=== PATIENT | male | born 1985 | race Caucasian/White ===

== ENCOUNTER 2019-12-21 01:19 | Inpatient (IN) | payer OTHER, SELFPAY ==
[~2019-12-21] VITALS: Ht 188 cm; Wt 113.4 kg
[2019-12-21 01:19] VITALS: BP_SYST 122
[2019-12-21] MEDS ORDERED: PHENYTOIN SODIUM INJ 1,000 MG in NS 100 ML IV ONE (01:45)
[2019-12-21] MEDS ORDERED: levETIRAcetam 1,000 MG IV BAG 100 ML IV ONE (02:00)
[2019-12-21] MEDS ORDERED: PHENYTOIN SODIUM 250 MG/5 ML INJ. VIAL IV ONE (02:08)
[2019-12-21 02:15] LABS: BASOPHILS # (AUTO) 0.1 K/uL (0.0-0.2); BASOPHILS % (AUTO) 1.4 % (0.0-2.0); EOSINOPHILS # (AUTO) 0.1 K/uL (0.0-0.4); EOSINOPHILS % (AUTO) 1.7 % (0.0-4.0); HEMATOCRIT 42.4 % (36-54); HEMOGLOBIN 14.9 g/dL (14.0-18.0); LYMPHOCYTES # (AUTO) 2.1 K/uL (1.0-5.5); LYMPHOCYTES % (AUTO) 37.9 % (20.5-51.5); MEAN CORPUSCULAR HEMOGLOBIN 31 pg (27-31); MEAN CORPUSCULAR HGB CONC 35 % (32-36); MEAN CORPUSCULAR VOLUME 87 fL (79.0-98.0); MONOCYTES # (AUTO) 0.4 K/uL (0.0-1.0); NEUTROPHILS # (AUTO) 2.8 K/uL (1.8-7.7); PLATELET COUNT (AUTO) 261 K/uL (130-430); RED BLOOD CELL COUNT(AUTO) 4.88 MIL/uL (4.2-6.2); RED CELL DISTRIBUTION WIDTH 13.2 % (9.0-15.0); WHITE BLOOD COUNT (AUTO) 5.6 K/uL (4.8-10.8)
[2019-12-21 02:24] LABS: BARBITURATE, URINE NEGATIVE (NEG <=200); BENZODIAZEPINE, URINE POSITIVE (NEG <=150); CANNABINOID, URINE NEGATIVE (NEG <=50); COCAINE, URINE NEGATIVE (NEG <=150); METHAMPHETAMINES SCREEN,URINE NEGATIVE (NEG <=500); OPIATE, URINE NEGATIVE (NEG <=100); PHENCYCLIDINE SCREEN,URINE NEGATIVE (NEG <=25); UR TRICYCLIC ANTIDEPRESSANTS NEGATIVE (NEG <=300); URINE AMPHETAMINE NEGATIVE (NEG <=500); URINE METHADONE NEGATIVE (NEG <=200); URINE OXYCODONE SCREEN NEGATIVE (NEG <=100); URINE PROPOXYPHENE SCREEN NEGATIVE (NEG <=300)
[2019-12-21 02:48] LABS: CALCIUM 8.2 mg/dL (8.4-11.0); CREATININE 0.72 mg/dL (0.55-1.30); POTASSIUM 3.8 mmol/L (3.5-5.1)
[2019-12-21 02:54] LABS: ALBUMIN 3.5 g/dL (3.4-4.8); TOTAL BILIRUBIN 0.4 mg/dL (0.0-1.0)
[2019-12-21 03:12] LABS: PHENYTOIN (DILANTIN) 1.1 ug/mL (10.0-20.0)
[2019-12-21 03:33] LABS: FREE T4 (FREE THYROXINE) 1.6 ng/dl (0.8-1.5); THYROID STIMULATING HORMONE 5.48 uIu/mL (0.36-3.74)
[2019-12-21] MEDS ORDERED: LORazepam 2 MG/ML VIAL IVP ONE (04:00)
[2019-12-21] MEDS ORDERED: LEVE500T9 PO (04:12)
[2019-12-21] MEDS ORDERED: LORazepam 2 MG/ML VIAL ONE (04:16)
[2019-12-21] MEDS ORDERED: ACETAMINOPHEN 500 MG TABLET PO ONE (04:30)
[2019-12-21 05:08] VITALS: BP_SYST 137
[2019-12-21] MEDS ORDERED: levETIRAcetam 1,000 MG in NS 100 ML IV STA (05:22)
[2019-12-21] MEDS ORDERED: LORazepam 2 MG/ML VIAL IVP PRN ×2 (05:30)
[2019-12-21] MEDS ORDERED: ONDANSETRON HCL 4 MG/2 ML VIAL IVP PRN (05:30)
[2019-12-21] MEDS ORDERED: ALBUTEROL SULFATE 0.083% 2.5 MG/3 ML VIAL.NEB INH PRN (05:30)
[2019-12-21] MEDS ORDERED: NACL 0.9% 1,000 ML IV SCH (05:30)
[2019-12-21] MEDS ORDERED: ACETAMINOPHEN 325 MG TABLET PO PRN (05:30)
[2019-12-21] MEDS ORDERED: MORPHINE 2 MG/ML INJ. SYRINGE IVP PRN (05:30)
[2019-12-21] MEDS ORDERED: PHENYTOIN 100 MG CAPSULE PO ONE (05:30)
[2019-12-21] MEDS ORDERED: FOLIC ACID 1 MG, THIAMINE HCL 100 MG, MAGNESIUM SULFATE 1 GM, MVI 10 ML in NACL 0.9% 1,... IV SCH (05:30)
[2019-12-21] MEDS ORDERED: NALOXONE HCL 0.4 MG/ML AMP (NARCAN) IVP PRN (05:30)
[2019-12-21 06:07] VITALS: BP_SYST 141
[2019-12-21 08:00] VITALS: BP_SYST 117
[2019-12-21] MEDS ORDERED: FOLIC ACID 1 MG, MVI 10 ML in NACL 0.9% 1,000 ML IV SCH (09:00)
[2019-12-21] MEDS ORDERED: THIAMINE HCL 100 MG, MAGNESIUM SULFATE 1 GM in NS 100 ML IV SCH (09:00)
[2019-12-21] MEDS ORDERED: levETIRAcetam 1,000 MG in NS 100 ML IV SCH (09:00)
[2019-12-21 10:11] VITALS: BP_SYST 117
[2019-12-21 10:20] LABS: BASOPHILS % (AUTO) 1.3 % (0.0-2.0); EOSINOPHILS # (AUTO) 0.1 K/uL (0.0-0.4); EOSINOPHILS % (AUTO) 2.2 % (0.0-4.0); HEMATOCRIT 39.3 % (36-54); HEMOGLOBIN 13.5 g/dL (14.0-18.0); LYMPHOCYTES # (AUTO) 1.4 K/uL (1.0-5.5); LYMPHOCYTES % (AUTO) 40.5 % (20.5-51.5); MEAN CORPUSCULAR HEMOGLOBIN 30 pg (27-31); MEAN CORPUSCULAR HGB CONC 34 % (32-36); MEAN CORPUSCULAR VOLUME 86 fL (79.0-98.0); MONOCYTES # (AUTO) 0.4 K/uL (0.0-1.0); MONOCYTES % (AUTO) 12.3 % (1.7-9.3); NEUTROPHILS # (AUTO) 1.6 K/uL (1.8-7.7); NEUTROPHILS % (AUTO) 43.7 % (40.0-70.0); PLATELET COUNT (AUTO) 226 K/uL (130-430); RED BLOOD CELL COUNT(AUTO) 4.58 MIL/uL (4.2-6.2); RED CELL DISTRIBUTION WIDTH 13.3 % (9.0-15.0); WHITE BLOOD COUNT (AUTO) 3.6 K/uL (4.8-10.8)
[2019-12-21 10:25] LABS: CALCIUM 8.4 mg/dL (8.4-11.0); CREATININE 0.67 mg/dL (0.55-1.30); PHOSPHORUS 3.6 mg/dL (2.7-4.5); POTASSIUM 3.8 mmol/L (3.5-5.1); TOTAL BILIRUBIN 0.3 mg/dL (0.0-1.0)
[2019-12-21 12:18] VITALS: BP_SYST 135
== END 2019-12-21 13:15 | disposition left against medical advice (07) | DRG 101 ==
LOC: SED 01:19 → STU 04:09
PROVIDERS: ADMIT Internal Medicine Hospice and Palliative Medicine; ATTEND Internal Medicine Hospice and Palliative Medicine
DX: R56.9 Unspecified convulsions (principal); E87.1 Hypo-osmolality and hyponatremia; E87.2 Acidosis; Z20.828 Contact with and (suspected) exposure to other viral communicable diseases; F10.20 Alcohol dependence, uncomplicated; Z53.29 Procedure and treatment not carried out because of patient's decision for other reasons; Y90.9 Presence of alcohol in blood, level not specified; Z91.14 Patient's other noncompliance with medication regimen; Z91.19 Patient's noncompliance with other medical treatment and regimen
CPT/HCPCS: 36415; 70450-TC; 80053; 80185-TC; 80307; 83735-TC; 84100-TC; 84439; 84443-TC; 85025; 96365; 96367; 96375; 99285; G0378; J1165; J1953; J2060; J3411; J3475; J3490; J7030

== ENCOUNTER 2019-12-29 06:41 | Inpatient (IN) | payer OTHER, SELFPAY ==
[~2019-12-29] VITALS: Ht 185.4 cm; Wt 117.9 kg
[2019-12-29] VITALS (15 sets, daily range): BP systolic 104–152
[~2019-12-29 06:41] MED LIST: LEVE500T9 PO
--- NOTE | 2019-12-29 06:41 | NUR ---
Patient to ER bed 1 to gown for evaluation. Side rails up.
--- NOTE | 2019-12-29 06:45 | NUR ---
Dr. Brandon bedside for pt eval
--- NOTE | 2019-12-29 06:47 | NUR ---
Pt BIBA from in front of [employer] having a witnessed seizure for less than 30 seconds. Hx of HTN, Crons, and Epilepsy. Stated he has been binge drinking since Mom 2 weeks ago. VSS no s/s of acute distress Resting on IOCOMrWimba rails up
[2019-12-29] MEDS ORDERED: levETIRAcetam 1,500 MG in NS 100 ML IV ONE (07:00)
[2019-12-29] MEDS ORDERED: LORazepam 2 MG/ML VIAL IVP ONE (07:00)
[2019-12-29] MEDS ORDERED: NACL 0.9% 1,000 ML IV ONE (07:00)
--- NOTE | 2019-12-29 07:00 | NUR ---
# 22 gauge angiocath placed to right wrist. Use of asceptic technique. Opsite placed over site. Blood return noted. Blood for lab drawn from site. Flushed with 10 cc of normal saline. No evidence of infiltration noted. Patient tolerated well.
[2019-12-29 07:17] LABS: BASOPHILS # (AUTO) 0.1 K/uL (0.0-0.2); EOSINOPHILS # (AUTO) 0.2 K/uL (0.0-0.4); EOSINOPHILS % (AUTO) 3.1 % (0.0-4.0); HEMATOCRIT 42.6 % (36-54); HEMOGLOBIN 14.9 g/dL (14.0-18.0); LYMPHOCYTES # (AUTO) 2.6 K/uL (1.0-5.5); LYMPHOCYTES % (AUTO) 42.4 % (20.5-51.5); MEAN CORPUSCULAR HEMOGLOBIN 30 pg (27-31); MEAN CORPUSCULAR HGB CONC 35 % (32-36); MEAN CORPUSCULAR VOLUME 86 fL (79.0-98.0); MONOCYTES # (AUTO) 0.4 K/uL (0.0-1.0); MONOCYTES % (AUTO) 7.1 % (1.7-9.3); NEUTROPHILS # (AUTO) 2.9 K/uL (1.8-7.7); NEUTROPHILS % (AUTO) 46.4 % (40.0-70.0); PLATELET COUNT (AUTO) 275 K/uL (130-430); RED BLOOD CELL COUNT(AUTO) 4.94 MIL/uL (4.2-6.2); RED CELL DISTRIBUTION WIDTH 13.8 % (9.0-15.0); WHITE BLOOD COUNT (AUTO) 6.2 K/uL (4.8-10.8)
[2019-12-29 07:28] LABS: ANION GAP 15 (5-15); CALCIUM 8.4 mg/dL (8.4-11.0); CHLORIDE 98 mmol/L (98-107); CREATININE 0.93 mg/dL (0.55-1.30); GFR AFRICAN AMERICAN 121 mL/min (>90); GLUCOSE 113 mg/dL (70-99); POTASSIUM 3.5 mmol/L (3.5-5.1); SODIUM SERUM 134 mmol/L (136-145); UREA NITROGEN, BLOOD 11 mg/dL (8-21)
[2019-12-29 07:39] LABS: BARBITURATE, URINE NEGATIVE (NEG <=200); BENZODIAZEPINE, URINE POSITIVE (NEG <=150); CANNABINOID, URINE NEGATIVE (NEG <=50); COCAINE, URINE NEGATIVE (NEG <=150); METHAMPHETAMINES SCREEN,URINE NEGATIVE (NEG <=500); OPIATE, URINE NEGATIVE (NEG <=100); PHENCYCLIDINE SCREEN,URINE NEGATIVE (NEG <=25); UR TRICYCLIC ANTIDEPRESSANTS NEGATIVE (NEG <=300); URINE AMPHETAMINE NEGATIVE (NEG <=500); URINE METHADONE NEGATIVE (NEG <=200); URINE OXYCODONE SCREEN NEGATIVE (NEG <=100); URINE PROPOXYPHENE SCREEN NEGATIVE (NEG <=300)
--- NOTE | 2019-12-29 07:45 | NUR ---
Pt had seizure lasting approximately 15 seconds, witnessed by staff at bedside. MD evaluated pt at bedside order for CT head.
[2019-12-29 07:48] LABS: ALANINE AMINOTRANSFERASE 48 U/L (12-78); PHENYTOIN (DILANTIN) < 0.5 ug/mL (10.0-20.0)
--- NOTE | 2019-12-29 08:00 | NUR ---
Patient transported to radiology via gurney, accompanied by instrument and controls technician.
--- NOTE | 2019-12-29 08:13 | NUR ---
Patient returned from CT
--- NOTE | 2019-12-29 08:27 | NUR ---
ophthalmic medical technologist at bedside for portable CXR.
[2019-12-29 08:33] LABS: ACETAMINOPHEN < 1 ug/mL (1-30)
[2019-12-29 08:39] LABS: ALBUMIN 3.6 g/dL (3.4-4.8); ASPARTATE AMINOTRANSFERASE 36 U/L (10-37); TOTAL BILIRUBIN 0.3 mg/dL (0.0-1.0)
[2019-12-29 08:40] LABS: ALCOHOL, BLOOD 180 mg/dL (<10)
[2019-12-29] MEDS ORDERED: PHENYTOIN SODIUM INJ 1,000 MG in NS 100 ML IV ONE (09:00)
--- NOTE | 2019-12-29 09:09 | NUR ---
[facility] home care attendant requested fax of pt clinicals and facesheet. gave auth for admit. Auth 3: [id number]
--- NOTE | 2019-12-29 09:10 | NUR ---
Called for an ICU bed. Currently waiting for a bed assignment
[2019-12-29] MEDS ORDERED: THIAMINE HCL 100 MG, MAGNESIUM SULFATE 1 GM in NS 100 ML IV ONE (09:15)
[2019-12-29] MEDS ORDERED: FOLIC ACID 1 MG, MVI 10 ML in NACL 0.9% 1,000 ML IV ONE (09:15)
[2019-12-29] MEDS ORDERED: FOLIC ACID 1 MG, THIAMINE HCL 100 MG, MAGNESIUM SULFATE 1 GM, MVI 10 ML in NACL 0.9% 1,... IV SCH (09:15)
--- NOTE | 2019-12-29 09:15 | NUR ---
# 20 gauge angiocath placed to RFA. Use of asceptic technique. Opsite placed over site. Blood return noted. Blood for lab drawn from site. Flushed with 10 cc of normal saline. No evidence of infiltration noted. Patient tolerated well.
[2019-12-29] MEDS ORDERED: PHENYTOIN SODIUM 250 MG/5 ML INJ. VIAL IV ONE ×2 (09:17→09:18)
--- NOTE | 2019-12-29 09:20 | NUR ---
Called ICU. Currently waiting for a bed assignment
--- NOTE | 2019-12-29 10:03 | NUR ---
Patient will be admitted to care of Dr. Newsome. Admitted to ICU. Will go to room ICU 5. Belongings list completed. Complete and up to date summary report printed. SBAR report to be given at bedside with opportunity for questions.
--- NOTE | 2019-12-29 10:24 | NUR ---
ADMIT NOTE Received pt from ER to the floor with a diagnosis of SEIZURE. Admission process initiated. patient oriented to pain management, safety and call light-teach back done.
--- NOTE | 2019-12-29 10:50 | NUR ---
Dr. Priest here to see patient.
--- NOTE | 2019-12-29 12:00 | NUR ---
Dr. Newsome is at bedside assessing patient. Patient's current family situation is inquired.
--- NOTE | 2019-12-29 13:10 | NUR ---
Patient c/o pruritus throughout his body. Dr. Newsome is informed and Benadryl is ordered.
[2019-12-29] MEDS: DIPHENHYDRAMINE INJ 50 MG/ML VIAL IVP PRN ×2 (13:37→21:29)
[2019-12-29] MEDS: LORazepam 2 MG/ML VIAL IVP PRN (13:46)
[2019-12-29] MEDS: D5NS 1,000 ML IV SCH ×2 (13:52→21:31)
[2019-12-29] MEDS ORDERED: PHEN100C4 PO (14:09)
[2019-12-29] MEDS ORDERED: METO25TA6 PO (14:09)
[2019-12-29] MEDS ORDERED: NOR10 PO (14:09)
[2019-12-29] MEDS ORDERED: LEVE500T9 PO (14:09)
[2019-12-29] MEDS ORDERED: LOSA100T23 PO (14:09)
--- NOTE | 2019-12-29 14:45 | NUR ---
Dr. Almendarez is at bedside. Current situation is relayed to Dr. Almendarez
--- NOTE | 2019-12-29 17:14 | NUR ---
Patient is given Librium 50mg PO. able to swallow the medications without problem.
[2019-12-29] MEDS: chlordiazePOXIDE HCL 25 MG CAPSULE PO SCH ×2 (17:22→21:13)
--- NOTE | 2019-12-29 18:51 | NUR ---
Patient is resting, arousable A/Ox4. Will continue to monitor.
[2019-12-29] MEDS ORDERED: BANANA BAG 1 EA, FOLIC ACID 1 MG, THIAMINE HCL 100 MG, MAGNESIUM SULFATE 1 GM, MVI 10 M... IV SCH ×5 (19:00)
--- NOTE | 2019-12-29 20:00 | NUR ---
EYES CLOSED BUT EASILY AROUSABLE ON APPROACH. AWAKE, ALERT, ORIENTED X4. IN NO APPARENT DISTRESS. VSS. DENIES PAIN. BREATH SOUNDS ESSENTIALLY CLEAR. ON ROOM AIR. PULSE OX 91-94%. BOWEL SOUNDS (+). PULSES PALPABLE. SKIN W/D. COLOR SATISFACTORY. HOB UP TO COMFORT. SIDE RAILS UP. CALL LIGHTS WITHIN REACH. SINUS RHYTHM. VOIDED 325CC CLEAR JULIO URINE VIA URINAL.
[2019-12-29] MEDS: levETIRAcetam 1,000 MG in NS 100 ML IV SCH (21:13)
--- NOTE | 2019-12-29 21:30 | NUR ---
TURNS SELF WELL. BENADRYL 25MG IVP GIVEN PER PT REQUEST FOR C/O ITCHINESS.
[2019-12-30] VITALS (24 sets, daily range): BP systolic 120–159
--- NOTE | 2019-12-30 | NUR ---
SOUNDLY ASLEEP. REPOSITIONS SELF WELL. HAS SLEEPAPNEA. DESATURATES AT TIMES.
--- NOTE | 2019-12-30 01:00 | NUR ---
REV. BONILLA OTT REQUESTS PT TO RETURN CALL TO HER. . MESSAGE TO BE RELAYED TO PT.
--- NOTE | 2019-12-30 04:00 | NUR ---
SLEPT FOR LONG PERIODS OF TIME. VOIDED 425CC CLEAR JULIO URINE VIA URINAL. MESSAGE REGARDING REV BONILLA BHATIA RELAYED.
--- NOTE | 2019-12-30 06:00 | NUR ---
SLEPT WELL MOST OF NOC. NO DISTRESS, SOB, OR PAIN NOTED. REMAINS IN GUARDED CONDITION.
--- NOTE | 2019-12-30 06:50 | NUR ---
TONIC-CLONIC ACTIVITY NOTED, LASTED FOR APPROX 2 MINUTES. KEPT SAFE. ATIVAN 2 MG IVP GIVEN FOR SEIZURES.
[2019-12-30] MEDS: LORazepam 2 MG/ML VIAL IVP PRN ×3 (06:51→16:59)
--- NOTE | 2019-12-30 06:58 | NUR ---
Report received from JEFFREY Millan. Patient is drowsy, arousable. Monty informed me that patient had a seizure about 8-10 minutes ago. SR on monitor, On room air. V/S stable. Call light in place. Seizure pads are placed. Call light in place, bed locked at the lowest position, will continue to monitor.
[2019-12-30] MEDS: DIPHENHYDRAMINE INJ 50 MG/ML VIAL IVP PRN ×3 (07:49→20:49)
[2019-12-30] MEDS: chlordiazePOXIDE HCL 25 MG CAPSULE PO SCH ×4 (07:49→20:48)
[2019-12-30] MEDS: levETIRAcetam 1,000 MG in NS 100 ML IV SCH ×2 (07:57→20:48)
[2019-12-30] MEDS: D5NS 1,000 ML IV SCH ×2 (08:45→18:45)
--- NOTE | 2019-12-30 08:45 | NUR ---
Dr. Priest is at bedside. Patient's current condition is provided.
[2019-12-30] MEDS: THIAMINE HCL 100 MG, MAGNESIUM SULFATE 1 GM in NS 100 ML IV SCH (09:20)
[2019-12-30] MEDS: FOLIC ACID 1 MG, MVI 10 ML in NACL 0.9% 1,000 ML IV SCH (09:21)
--- NOTE | 2019-12-30 10:00 | NUR ---
Dr. Newsome at bedside, and patient is assessed. No new orders given at this time.
--- NOTE | 2019-12-30 11:48 | NUR ---
Patient is resting, SR, V/S. No sz activity noted.
--- NOTE | 2019-12-30 13:00 | NUR ---
Patient receives Librium PO. Tolerated without distress.
--- NOTE | 2019-12-30 14:46 | NUR ---
Dietitian Recommendations * Consider advance diet if/when medically appropriate * Consider 2 gm Na, high fiber diet d/t Hx of HTN and UC LP, RD Please refer to Nutrition Assessment for details. Addendum: 12/30/19 at [address] Amended: Links added.
--- NOTE | 2019-12-30 16:18 | NUR ---
Patient is having a generalized seizure, lasting about 1.5 minutes. Patient is well protected at this time. V/S stable. Dr. Almendarez is called, awaiting call back.
--- NOTE | 2019-12-30 17:30 | NUR ---
Dr. Almendarez is called to clarify the order of ativan.
--- NOTE | 2019-12-30 18:15 | NUR ---
Dr. Almendarez is called to clarify the order of Ativan in case of seizure.
--- NOTE | 2019-12-30 20:00 | NUR ---
AAOX4. IN NO APPARENT DISTRESS. VSS. DENIES PAIN. ON ROOM AIR. BREATH SOUNDS CLEAR. POX 99%. BOWEL SOUNDS ACTIVE. PULSES PALPABLE. SKIN W/D. COLOR SATISFACTORY. HOB UP TO COMFORT. SIDE RAILS UP. CALL LIGHTS WITHIN REACH. VOIDED 400CC CLEAR JULIO URINE TO GRAVITY. BENADRYL 25 MG IVP GIVEN FOR ITCHINESS. SR.
--- NOTE | 2019-12-30 22:00 | NUR ---
DOZES ON AND OFF. PERIODS OF SLEEP APNEA, DESATURATES IN THE 80'S. VOIDED 300CC CLEAR JULIO URINE TO GRAVITY.
[2019-12-31] VITALS (24 sets, daily range): BP systolic 129–154
--- NOTE | 2019-12-31 | NUR ---
ASLEEP. TURNS SELF WELL. SEIZURES NOTED AT 0015, ATIVAN 2 MG IVP GIVEN. KEPT SAFE.
[2019-12-31] MEDS: LORazepam 2 MG/ML VIAL IVP PRN ×3 (00:15→16:24)
--- NOTE | 2019-12-31 02:00 | NUR ---
SLEPT INTERMITTENTLY. VOIDED 275CC CLEAR JULIO URINE TO GRAVITY.
[2019-12-31] MEDS: D5NS 1,000 ML IV SCH ×2 (02:04→14:51)
[2019-12-31] MEDS: DIPHENHYDRAMINE INJ 50 MG/ML VIAL IVP PRN ×4 (03:21→20:12)
--- NOTE | 2019-12-31 03:21 | NUR ---
BENADRYL 25 MG IVP GIVEN FOR C/O ITCHINESS.
--- NOTE | 2019-12-31 04:00 | NUR ---
SOUNDLY ASLEEP. REPOSITIONS SELF WELL. SINUS BRADYCARDIA AT TIMES.
--- NOTE | 2019-12-31 06:00 | NUR ---
SLEPT WELL MOST OF NOC. NO DISTRESS NOTED. DESATURATES WHEN APNEIC. SB-SR. REMAINS IN GUARDED CONDITION.
--- NOTE | 2019-12-31 08:00 | NUR ---
AM ROUNDS: PATIENT C/O HEADACHE.ICE PACK GIVEN PUT OVER HEAD. IV FLUIDS RUNNING AT RIGHT FOREARM INTACT. NO DISTRESS.PADDED SIDE RAILS ON. CONTINUE TO MONITOR FOR ANY SEIZURES.
[2019-12-31] MEDS: levETIRAcetam 1,000 MG in NS 100 ML IV SCH ×2 (08:05→20:10)
[2019-12-31] MEDS: chlordiazePOXIDE HCL 25 MG CAPSULE PO SCH ×4 (08:16→20:09)
--- NOTE | 2019-12-31 09:26 | NUR ---
Spoke with insurance case mangager and review given. Also referred them to our tesfaye.
--- NOTE | 2019-12-31 09:41 | NUR ---
SEIZURE: DR PAREKH IN THE ROOM AND WITNESSED THE SEIZURES.DUE IV ATIVAN GIVEN FOR SEIZURES.
[2019-12-31] MEDS: THIAMINE HCL 100 MG, MAGNESIUM SULFATE 1 GM in NS 100 ML IV SCH (09:43)
[2019-12-31] MEDS: FOLIC ACID 1 MG, MVI 10 ML in NACL 0.9% 1,000 ML IV SCH (09:43)
--- NOTE | 2019-12-31 13:00 | NUR ---
Neuro Rounds: Dr Amy Almendarez seen patient in the room. With orders for EEG today as ordered.
--- NOTE | 2019-12-31 15:00 | NUR ---
Rn Rounds: Patient on side lying ,sleeping during rounds.
--- NOTE | 2019-12-31 16:24 | NUR ---
Seizure: Had a seizure and due Iv Ativan given as ordered. Seizure stopped after Ativan was given.
--- NOTE | 2019-12-31 18:35 | NUR ---
END OF SHIFT: RESTING THIS TIME. ROOM AIR,GOOD SATURATION. CONTINUE TO MONITOR FOR ANY SEIZURE ,PRECAUTION RENDERED.
--- NOTE | 2019-12-31 19:15 | NUR ---
PM SHIFT ASSESSMENT Pt is alert and oriented. Pt is on room air, RR even and unlabored. Seizure precautions in place. IVF infusing. Safety precautions in place, call light within reach. Will continue to monitor.
[2020-01-01] VITALS (20 sets, daily range): BP systolic 151–187
[2020-01-01] MEDS: D5NS 1,000 ML IV SCH ×3 (00:54→20:45)
[2020-01-01] MEDS: LORazepam 2 MG/ML VIAL IVP PRN ×2 (00:55→02:31)
--- NOTE | 2020-01-01 02:20 | NUR ---
SEIZURE Witnessed patient have a seizure, estimated time of 2 mins[address] Seizure precautions in place. PRN ATIVAN given. VSS. Will continue to monitor.
--- NOTE | 2020-01-01 07:18 | NUR ---
ENDORSEMENT Pt care endorsed to dayshift RN using nursing SBAR.
--- NOTE | 2020-01-01 07:25 | NUR ---
AM ROUNDS: PATIENT SLEEPING ON THE BED. UPDATES GIVEN BY NIGHT NURSE JORGE L. PADDED SIDE RAILS ON FOR SEIZURE PRECAUTIONS. BED LOCKED AT LOWEST POSITION. SAFETY MEASURES RENDERED.
[2020-01-01] MEDS: FOLIC ACID 1 MG, MVI 10 ML in NACL 0.9% 1,000 ML IV SCH (09:16)
[2020-01-01] MEDS: THIAMINE HCL 100 MG, MAGNESIUM SULFATE 1 GM in NS 100 ML IV SCH (09:16)
[2020-01-01] MEDS: chlordiazePOXIDE HCL 25 MG CAPSULE PO SCH ×4 (09:16→21:36)
[2020-01-01] MEDS: levETIRAcetam 1,000 MG in NS 100 ML IV SCH ×2 (09:16→21:36)
[2020-01-01 10:14] LABS: BASOPHILS % (AUTO) 0.7 % (0.0-2.0); EOSINOPHILS # (AUTO) 0.2 K/uL (0.0-0.4); EOSINOPHILS % (AUTO) 3.4 % (0.0-4.0); HEMATOCRIT 43.5 % (36-54); HEMOGLOBIN 15.2 g/dL (14.0-18.0); LYMPHOCYTES # (AUTO) 1.5 K/uL (1.0-5.5); LYMPHOCYTES % (AUTO) 30.5 % (20.5-51.5); MEAN CORPUSCULAR HEMOGLOBIN 30 pg (27-31); MEAN CORPUSCULAR HGB CONC 35 % (32-36); MEAN CORPUSCULAR VOLUME 87 fL (79.0-98.0); MONOCYTES # (AUTO) 0.4 K/uL (0.0-1.0); MONOCYTES % (AUTO) 7.9 % (1.7-9.3); NEUTROPHILS # (AUTO) 2.8 K/uL (1.8-7.7); NEUTROPHILS % (AUTO) 57.5 % (40.0-70.0); PLATELET COUNT (AUTO) 235 K/uL (130-430); RED CELL DISTRIBUTION WIDTH 13.5 % (9.0-15.0); WHITE BLOOD COUNT (AUTO) 4.8 K/uL (4.8-10.8)
[2020-01-01 10:25] LABS: CALCIUM 8.9 mg/dL (8.4-11.0); CREATININE 0.83 mg/dL (0.55-1.30); POTASSIUM 3.5 mmol/L (3.5-5.1)
[2020-01-01] MEDS ORDERED: LOSARTAN POTASSIUM 50 MG TABLET (COZAAR) PO ONE (10:30)
[2020-01-01] MEDS ORDERED: METOPROLOL TARTRATE 25 MG TABLET PO ONE (10:30)
[2020-01-01] MEDS ORDERED: amLODIPine BESYLATE 10 MG TABLET PO ONE (10:30)
[2020-01-01 10:31] LABS: ALBUMIN 3.3 g/dL (3.4-4.8); TOTAL BILIRUBIN 0.5 mg/dL (0.0-1.0)
--- NOTE | 2020-01-01 10:33 | NUR ---
BP MEDS: DUE PO MEDS GIVEN ORDERED.
[2020-01-01] MEDS: DIPHENHYDRAMINE INJ 50 MG/ML VIAL IVP PRN ×3 (12:38→21:37)
--- NOTE | 2020-01-01 18:12 | NUR ---
BP ELEVATED: SPOKE WITH DR PAREKH AND INFORMED HIM PT'S VH=894/102,WITH ORDERS GIVE CLONIDINE 0.1MG PO X1 NOW THEN EVERY 6 HOURS PRN FOR SBP>155.MAY TRANSFER TO TELEMETRY TONIGHT.
[2020-01-01] MEDS ORDERED: cloNIDine HCL 0.1 MG TABLET PO PRN (18:15)
[2020-01-01] MEDS ORDERED: cloNIDine HCL 0.1 MG TABLET PO ONE (18:15)
--- NOTE | 2020-01-01 18:42 | NUR ---
CATAPRES: CATAPRES 0.1MG PO X1 GIVEN FOR SBP > 155 ORDERED.
--- NOTE | 2020-01-01 18:54 | NUR ---
END OF SHIFT: WILL ENDORSED TO INCOMING NIGHT NURSE,PATIENT WILL BE TRANSFER TO TELEMETRY ORDERED. NO SEIZURES NOTED THE WHOLE SHIFT. PADDED SIDE RAILS ON. SAFETY MEASURES RENDERED. NO ACUTE DISTRESS.
--- NOTE | 2020-01-01 19:30 | NUR ---
REPORT: REPORT GIVEN TO NEELAM KIM NURSE.
--- NOTE | 2020-01-01 19:35 | NUR ---
PT TRANSFERRED PT TRANSFERRED TO [facility] AT THIS TIME VIA BED IN STABLE CONDITION. ALL BELONGINGS AND MEDS TRANSFERRED WITH PT.
--- NOTE | 2020-01-01 19:50 | NUR ---
Received from ICU transfer Pt AAOx4, no acute distress noted. VSS. SR on the monitor. Seizure precaution in place. IV R. arm not patent. Call light within reach. Bed low, locked, siderails up x2. To monitor.
--- NOTE | 2020-01-01 21:25 | NUR ---
IV RE-INSERTION: CRN restarted IV on L. forearm on 22G. Good blood return. Resumed current IVF at ordered rate and Keppra IV administered. Will observe for any signs of infiltration. R. arm IV dc'd catheter tip intact, no active bleed. Pt tolerated well.
[2020-01-01] MEDS: METOPROLOL TARTRATE 25 MG TABLET PO SCH (21:37)
[2020-01-01] MEDS: ACETAMINOPHEN 325 MG TABLET PO PRN (22:21)
--- NOTE | 2020-01-01 22:21 | NUR ---
Bathroom Pt ambulated to the bathroom and had a BM. Pt c/o headache, medicated w/ Tylenol 650mg PO as needed. Call light within reach. To monitor.
--- NOTE | 2020-01-02 00:05 | NUR ---
Rounds Pt awake, watching TV, no s/s distress noted. Seizure precautions maintained. Call light within reach. To monitor.
[2020-01-02 01:15] VITALS: BP_SYST 142
--- NOTE | 2020-01-02 01:29 | NUR ---
Rounds Pt asleep, no s/s distress noted. IVF infusing at ordered rate L. FA clear and patent. Call light within reach. To monitor.
--- NOTE | 2020-01-02 03:15 | NUR ---
Rounds Pt awake, watching TV, no s/s distress noted. IVF infusing at ordered rate L. FA clear and patent. Seizure precaution maintained w/ padded siderails. Call light within reach. To monitor.
[2020-01-02] MEDS: D5NS 1,000 ML IV SCH (03:17)
[2020-01-02] MEDS: DIPHENHYDRAMINE INJ 50 MG/ML VIAL IVP PRN ×4 (04:37→23:27)
--- NOTE | 2020-01-02 04:37 | NUR ---
Rounds Pt awake, c/o itching. Benadryl 25mg IVP administered as needed. IVF infusing at ordered rate LFA 22G no s/s infiltration. Call light within reach. Seizure precaution maintained. To monitor.
--- NOTE | 2020-01-02 06:15 | NUR ---
Closing notes Pt AAOx4, no acute distress noted. SR on the monitor. Seizure precaution maintained w/ padded siderails. IVF infusing at ordered rate L. FA 22G no s/s infiltration. No seizure activity noted during the shift. Call light within reach. Bed low, locked, siderails up x2. To endorse to AM nurse.
--- NOTE | 2020-01-02 07:40 | NUR ---
OPENING NOTES PT AWAKE, ALERT, AND ORIENTED. NONLABORED BREATHING NOTED ON ROOM AIR, TOLERATING WELL. IV LINE INTACT AND PATENT, NO SIGNS OF INFILTRATION NOTED, FLUIDS RUNNING ORDERED PER MD. NO ACUTE DISTRESS NOTED. ALL NEEDS MET. CALL LIGHT IN REACH. SEIZURE PADS IN PLACE. FALL AND ASPIRATION PRECAUTIONS IN PLACE. CONTINUE TO MONITOR.
[2020-01-02 08:00] VITALS: BP_SYST 149
[2020-01-02] MEDS: THIAMINE HCL 100 MG, MAGNESIUM SULFATE 1 GM in NS 100 ML IV SCH (09:26)
[2020-01-02] MEDS: FOLIC ACID 1 MG, MVI 10 ML in NACL 0.9% 1,000 ML IV SCH (09:26)
[2020-01-02] MEDS: levETIRAcetam 1,000 MG in NS 100 ML IV SCH (09:26)
[2020-01-02] MEDS: chlordiazePOXIDE HCL 25 MG CAPSULE PO SCH ×4 (09:26→21:05)
[2020-01-02] MEDS: LOSARTAN POTASSIUM 50 MG TABLET (COZAAR) PO SCH (09:27)
[2020-01-02] MEDS: METOPROLOL TARTRATE 25 MG TABLET PO SCH ×2 (09:27→21:06)
[2020-01-02] MEDS: amLODIPine BESYLATE 10 MG TABLET PO SCH (09:28)
--- NOTE | 2020-01-02 09:40 | NUR ---
ROUTINE MEDS ADMINISTERED ORDERED PER MD, EDUCATION GIVEN, TOLERATED WELL. PT C/O ITCHING, ADMINISTERED PRN ITCHING MEDICATION ORDERED PER MD, EDUCATION GIVEN, TOLERATED WELL. ALL NEEDS MET. CALL LIGHT IN REACH. CONTINUE TO MONITOR.
--- NOTE | 2020-01-02 09:43 | NUR ---
SEEN BY DR. PAREKH AT BEDSIDE. AWARE OF PT C/O HEARTBURN
[2020-01-02] MEDS ORDERED: LORazepam 2 MG/ML VIAL IVP ONE (09:45)
--- NOTE | 2020-01-02 09:45 | NUR ---
REI DHALIWAL, RECEIVED ORDERS FOR ATIVAN FROM DR. PARKEH IN PERSON, VERIFIED, AND CARRIED OUT.
--- NOTE | 2020-01-02 09:46 | NUR ---
HIGH ALERT NOTE: SPKOE TO Dr. PAREKH AT BEDSIDE, identified within the medical roster to verify physician authenticity.
[2020-01-02] MEDS ORDERED: THIAMINE HCL 100 MG TABLET PO ONE (10:15)
[2020-01-02] MEDS ORDERED: PANTOPRAZOLE SODIUM 40 MG TAB PO ONE (10:15)
[2020-01-02] MEDS: ACETAMINOPHEN 325 MG TABLET PO PRN ×2 (10:28→23:27)
--- NOTE | 2020-01-02 10:30 | NUR ---
PT C/O PAIN, ADMINISTERED PRN PAIN MEDS ORDERED PER MD AND ONE TIME MEDICATION OF ATIVAN ORDERED PER MD, EDUCATION GIVEN, TOLERATED WELL. NO ACUTE DISTRESS NOTED. ALL NEEDS MET. CALL LIGHT IN REACH. CONTINUE TO MONITOR.
--- NOTE | 2020-01-02 10:32 | NUR ---
CONSULTATION: REASON FOR CONSULT: DEPRESSION CONSULTING PHYSICIAN: LIU VILLARREAL DO ORDERED BY: IZABELLA SPOKE WITH [facility] [phone]
--- NOTE | 2020-01-02 11:21 | NUR ---
Nutrition F/U RD reviewed pt's current EMR record including diet hx, MD notes, RN notes, pertinent labs/meds/procedures, care trends, and care activity Admitting Diagnosis Recurrent seizures Reviewed Pertinent Medical/Surgical Hx Medical Record Patient Other Medical History Comment: PMH: atr fibr, seizures, HTN, UC, alcohol dependence per physician notes SARS-CoV-2 Ag (Rapid) Negative 12/28 Subjective Information 34 y.o. male pt admitted for recurrent seizures per MD note. Diet order has been advanced to Regular Diet per EMR. RD met w/ pt at bedside. Pt stated having better appetite but reported not eating much today during breakfast. Pt also reported still having c/o of diarrhea, w/ 3 BM yesterday night. PO intake appears to be trending up per intake record, w/ PO intakes of 80% and 100% for lunch and dinner since diet advanced yesterday. RD offered nutritional supplements (Ensure BID) to promote PO intake. Pt accepted RD's offer and verbalized understanding. Recommend continue Regular Diet for now d/t pt's hx of poor PO intake and provide Banatrol TID to help w/ pt's diarrhea. Will re-assess need for 2g Na, high fiber diet once pt's PO intake appears to be adequate. Current Diet Order/Nutrition Support Regular Diet x 0 day Skin Integrity Comment: Carlos scale: 20; skin intact per RN Current % PO 80-100% x 2 meals, improving Estimated Energy Expenditure (kcals/day) 8145-7489 kcal/day (MSJ x 1-1.2 CBW for maintenance) Estimated Protein Required (g/day) 92-110 gm/day (1-1.2 gm/kg Adj IBW for acute state) Estimated Fluid Required (l/day) 2.2-2.6 L/day (1 ml/kcal/day for maintenance) Problem/Etiology/Signs/Symptoms Predicted inadequate nutritional intakes related to possible displacement of wholesome foods as evidenced by Hx of alcohol dependence. *improving Unintentional wt loss related to psychological factors as evidenced by 18#/6% wt change within 1 month. *ongoing Expected Outcomes/Goals - Monitor advancement of diet, appetite and PO intakes w/ goal of pt meeting at least 75% of estimated nutritional needs, labs trending WNL, normal GI function, and skin integrity/wt maintenance Dietitian Recommendations * Recommend continue Regular Diet * Recommend banatrol TID to help w/ pt's diarrhea * Recommend Ensure Enlive BID to provide additional 700 kcal, 40 g protein to promote PO intake. * Consider 2 gm Na, high fiber diet d/t Hx of HTN and UC once pt's PO intake improves. Follow Up High Risk: F/U in 2-3days
--- NOTE | 2020-01-02 11:32 | NUR ---
Dietitian Recommendations * Recommend continue Regular Diet * Recommend banatrol TID to help w/ pt's diarrhea * Recommend Ensure Enlive BID to provide additional 700 kcal, 40 g protein to promote PO intake. * Consider 2 gm Na, high fiber diet d/t Hx of HTN and UC once pt's PO intake improves. Please see Nutrition F/U for details. EP,RD
[2020-01-02 12:00] VITALS: BP_SYST 144
--- NOTE | 2020-01-02 12:30 | NUR ---
ROUNDS PT AWAKE AND ALERT. NO ACUTE DISTRESS NOTED. ALL NEEDS MET. CALL LIGHT IN REACH. CONTINUE TO MONITOR.
--- NOTE | 2020-01-02 13:04 | NUR ---
routine meds administered as ordered per md, education given, tolerated well. continue to monitor.
--- NOTE | 2020-01-02 15:11 | NUR ---
ROUNDS PT AWAKE AND ALERT, SPEAKING TO PROOF READER AT THIS TIME. NO ACUTE DISTRESS NOTED. ALL NEEDS MET. CALL LIGHT IN REACH. CONTINUE TO MONITOR.
--- NOTE | 2020-01-02 15:46 | NUR ---
Canary Raiser Note Patient referred by Canary Raiser due to substance abuse and homelessness. Noted that patient had a recent admission and left AMA. He was given multiple resources at that time. Noted that a psychiatric consult was ordered by Dr Newsome. Met patient at bedside. Patient is alert, oriented, and cooperative. Discussed at length and recommended multiple resources, including the [facility] substance abuse hot line, food pantry, mental health clinics, and [facility] clinics. Patient has a recent loss of his mother and his alcoholism has worsened. He lost his home and job. A friend has offered to pay for [employer] for the current future. He has the support of friends, mostly older people who were friends with his mother. Patient is working to apply for unemployment and disability. He has a PCP, Dr Marcelino, with whom he will follow up. He stated that as recently as a year and a half ago, he was connected with [facility] in [place] with a mental health diagnosis of bipolar, depression and anxiety. His provider left and he did not seek a new provider. He has not been taking his medications. Counseled follow up and compliance with prescribed medications. He is aware of psych consult and is in agreement. Patient denies the need for clothing. A friend will transport back to [employer], but he is aware the hospital can provide transport if needed. He is aware he can request a sack meal for discharge. As advised on the Homeless Assessment, I contacted patient's insurance ([facility]) Yudy LEVIN [phone], and left a voicemail message that patient will need mental health follow up. Homeless waiver placed in the chart and Homeless Assessment completed as much as possible. I will request that tomorrow, after the psych consult, the school social worker follow up with a possible referral to [facility] or [facility] program for patients who have a mental health diagnosis and are homeless. I gave him my card. Canary Raiser will remain available.
--- NOTE | 2020-01-02 16:07 | NUR ---
PT C/O ITCHING ADMINISTERED PRN AND ROUTINE MEDS ADMINISTERED ORDERED PER MD, EDUCATION GIVEN, TOLERATED WELL. CONTINUE TO MONITOR.
[2020-01-02 16:18] VITALS: BP_SYST 140
--- NOTE | 2020-01-02 17:02 | NUR ---
ROUNDS PT RESTING IN BED, CHEST RISE AND FALL NOTED. NO ACUTE DISTRESS NOTED. ALL NEEDS MET. CALL LIGHT IN REACH. CONTINUE TO MONITOR.
--- NOTE | 2020-01-02 18:15 | NUR ---
ROUNDS PT AWAKE AND ALERT, WATCHING TV IN BED. NO ACUTE DISTRESS NOTED. ALL NEEDS MET. CALL LIGHT IN REACH. CONTINUE TO MONITOR.
--- NOTE | 2020-01-02 18:47 | NUR ---
CLOSING NOTES PT AWAKE, ALERT, AND ORIENTED WATCHING TV IN BED. NONLABORED BREATHING NOTED ON ROOM AIR, TOLERATING WELL. IV LINE INTACT AND PATENT, NO SIGNS OF INFILTRATION NOTED. NO ACUTE DISTRESS NOTED. ALL NEEDS MET. CALL LIGHT IN REACH. SEIZURE PADS IN PLACE. NO ACTIVE SEIZURES NOTED THIS SHIFT. FALL AND ASPIRATION PRECAUTIONS IN PLACE. WILL ENDORSE TO NOC NURSE.
--- NOTE | 2020-01-02 19:05 | NUR ---
Report received from day shift nurse. Pt was received lying in bed fully awake, alert and oriented x4. Pt denies pain or discomfort. Saline lock in LFA is without any signs of infiltration. No seizure activity noted at this time. Fall, seizure and safety precautions are in place.
[2020-01-02 20:00] VITALS: BP_SYST 151
[2020-01-02] MEDS: levETIRAcetam 500 MG TABLET PO SCH (21:05)
--- NOTE | 2020-01-02 21:05 | NUR ---
Scheduled HS medications given and no difficulty swallowing noted. Pt declined bed alarm. Pt was instructed to call for assistance before getting out of bed if he feels dizzy or drowsy and pt verbalized understanding. Call light is with pt and bed is in the lowest/locked positions.
--- NOTE | 2020-01-02 23:27 | NUR ---
Pt c/o headache and Tylenol 650mg was given po per pt's request. Pt also c/o generalized itching and Benadryl 25mg was given IV per pt's request. Pt declined bed alarm. Pt stated he takes Librium, Benadryl and Ativan all together at home. Pt was instructed to call for assistance before getting out of bed if he feels dizzy or drowsy and pt verbalized understanding. Call light is with pt and bed is in the lowest/locked positions.
[2020-01-03 00:30] VITALS: BP_SYST 142
--- NOTE | 2020-01-03 01:30 | NUR ---
Sleeping comfortably in bed.
--- NOTE | 2020-01-03 03:30 | NUR ---
Sleeping without any distress.
--- NOTE | 2020-01-03 05:30 | NUR ---
Resting quietly in bed. No c/o pain or discomfort.
--- NOTE | 2020-01-03 07:00 | NUR ---
Pt is awake and resting comfortably in bed. Saline lock is intact in LFA. Fall and safety precautions are in place. Will endorse to day shift nurse.
[2020-01-03 08:00] VITALS: BP_SYST 143
--- NOTE | 2020-01-03 08:00 | NUR ---
initial notes rec patient awake alert with hob elevated. ivl on the l arm in place. no infiltration noted. no seizure noted, resp easy and unlabored. no sob noted. bed to the lowest position and side rails up and locked. call light within reached. will continue to monitor patient.
[2020-01-03] MEDS ORDERED: PANTOPRAZOLE SODIUM 40 MG TAB PO SCH (09:00)
[2020-01-03] MEDS ORDERED: THIAMINE HCL 100 MG TABLET PO SCH (09:00)
[2020-01-03] MEDS: LOSARTAN POTASSIUM 50 MG TABLET (COZAAR) PO SCH (09:34)
[2020-01-03] MEDS: levETIRAcetam 500 MG TABLET PO SCH (09:35)
[2020-01-03] MEDS: chlordiazePOXIDE HCL 25 MG CAPSULE PO SCH (09:35)
[2020-01-03] MEDS: amLODIPine BESYLATE 10 MG TABLET PO SCH (09:35)
[2020-01-03] MEDS: METOPROLOL TARTRATE 25 MG TABLET PO SCH (09:36)
--- NOTE | 2020-01-03 10:30 | NUR ---
rounds seen by dr grant . no osb noted. due meds given and mandi well. call light withn reached.
--- NOTE | 2020-01-03 12:16 | NUR ---
Manager Respiratory Care follow up: SECY met with patient at bed side to provide additional MH services and Substance Use Disorder Treatment. [facility] case assembler Yudy , left a voice mail that Pt. can access services through [facility]. SECY obtained [facility] [place] for 24 hr service line at . Pt. does not need an authorization to access services, can call for referrals to initial intake and provider list. [facility] provided a flyer with [facility] for Pt. He stated that he had utilized the in the past intends to utilize them for linkage with [facility] where he has received treatment in the past for depression and was Rx Lexapro, pt. has not taken this medication in several months. He intends to follow up with [facility] in [place], since this office is closer to him. Pt. can also access [facility] through [facility] and this option was discussed at length with Pt. Pt. reported he has not met with psychiatrist today and is pending a consultation. Per assigned RN , psych consult has been order and he is waiting to be seen by Psych MD. At this time, Pt. presents as alert, oriented and responsive, he does not appear to be in acute psychiatric distress, he was able to communicate well and provide a viable discharge plan for self- care. He denied any present S/I, H/I, A/V/H and appears generally stable form a MH perspective. He is agreeable to follow up with MH [place] upon D/C form hospital. Manager Respiratory Care will remain available to Pt. should the need arise, he expressed no further concerns or inquiries at this time.
[2020-01-03 12:33] VITALS: BP_SYST 138
[2020-01-03] MEDS: LORazepam 2 MG/ML VIAL IVP PRN (12:39)
--- NOTE | 2020-01-03 14:00 | NUR ---
rounds ambulates to the br and mandi well. call light within reached.
--- NOTE | 2020-01-03 15:00 | NUR ---
rounds seen by dr ramirez at bedside. no sob noted. call light within reached. no sob noted.
[2020-01-03 16:39] VITALS: BP_SYST 131
--- NOTE | 2020-01-03 18:02 | NUR ---
rounds awaiting for dr bradshaw to call re seizure med. pt wants to leave , charge nurse talked to patient and waiting at this time.
--- NOTE | 2020-01-03 19:20 | NUR ---
closing notes paged dr grant again but dr coats was covering. refused to give discharge order and wants the patient to stay. dr gil was called since patient wants a keppra prescription. stated that the pmd has to be giving the prescription. pt stated will sign ama instead. stated will have to go home and take care of his cat and will dr gil in am for appt. pt insists of getting his libruim dose for 2100. explained to patient that he needs to stay for the night but choose to sign ama.
[2020-01-03] MEDS ORDERED: chlordiazePOXIDE HCL 25 MG CAPSULE PO SCH (21:00)
[2020-01-04] MEDS ORDERED: CITALOPRAM HYDROBROMIDE 20 MG TABLET PO SCH (09:00)
== END 2020-01-03 18:40 | disposition left against medical advice (07) | DRG 101 ==
LOC: SED 06:41 → SIC 08:52 → STU 01-01 19:35 → SMU 01-02 10:50
PROVIDERS: ADMIT Internal Medicine Hospice and Palliative Medicine; ATTEND Internal Medicine Hospice and Palliative Medicine
PROC: 4A00X4Z Measurement of Central Nervous Electrical Activity, External Approach (ICD-10-PCS; principal; 2019-12-29)
DX: G40.509 Epileptic seizures related to external causes, not intractable, without status epilepticus (principal); K51.90 Ulcerative colitis, unspecified, without complications; R65.10 Systemic inflammatory response syndrome (SIRS) of non-infectious origin without acute organ dysfunction; F10.221 Alcohol dependence with intoxication delirium; F10.231 Alcohol dependence with withdrawal delirium; I48.91 Unspecified atrial fibrillation; I10 Essential (primary) hypertension; Z20.828 Contact with and (suspected) exposure to other viral communicable diseases; F32.9 Major depressive disorder, single episode, unspecified; Z53.29 Procedure and treatment not carried out because of patient's decision for other reasons; Y90.9 Presence of alcohol in blood, level not specified; F17.210 Nicotine dependence, cigarettes, uncomplicated; Z88.0 Allergy status to penicillin; Z79.899 Other long term (current) drug therapy; Z79.01 Long term (current) use of anticoagulants
CPT/HCPCS: 36415; 70450-TC; 71045; 80053; 80185-TC; 80307; 85025; 87081; 93005; 95816; 96365; 96367; 96368; 96375; 99285; G0378; G0480; G0481; G0482; J1165; J1200; J1953; J2060; J3411; J3475; J3490; J7030; J7042

== ENCOUNTER 2020-01-13 03:56 | Inpatient (IN) | payer OTHER, SELFPAY ==
[~2020-01-13] VITALS: Ht 182.9 cm; Wt 106.8 kg
[2020-01-13] VITALS (17 sets, daily range): BP systolic 112–143
[~2020-01-13 03:56] MED LIST changes: +LOSA100T23 PO; +METO25TA6 PO; +NOR10 PO; +PHEN100C4 PO
--- NOTE | 2020-01-13 04:00 | NUR ---
Placed in BED 1 . Placed on rn cardiac cath, blood pressure machine and pulse oximeter. To gown for exam. Side rails up. PLACED ON O2 AT 4L/MIN/NC. Report given to .
--- NOTE | 2020-01-13 04:10 | NUR ---
AWAKE, ALERT, ORIENTED. STATES THAT HE WAS IN [facility] AT [place] AND HAD DRANK 4 BIG BOTTLES OF BEERS. PT STATES HE HAD MULTIPLE SEIZURES AND A FRIEND CALLED [employer]. PT STATES HE DOES NOT REMEMBER ANYTHING ANYMORE. SIDERAILS PADDED.
--- NOTE | 2020-01-13 04:22 | NUR ---
Dr. Marcus bedside for pt eval
[2020-01-13] MEDS ORDERED: NACL 0.9% 1,000 ML IV ONE ×2 (04:30→08:30)
[2020-01-13] MEDS ORDERED: levETIRAcetam 1,000 MG IV BAG 100 ML IV ONE (04:30)
--- NOTE | 2020-01-13 04:30 | NUR ---
# 22 gauge angiocath placed to . Use of asceptic technique. Opsite placed over site. Blood return noted. Blood for lab drawn from site. Flushed with 10 cc of normal saline. No evidence of infiltration noted. Patient tolerated well. Addendum: 01/13/20 at 0604 by [email or web address] PLACED TO LEFT AC.
--- NOTE | 2020-01-13 05:00 | NUR ---
PT HAVING TONIC/CLONIC SEIZURES, KEPPRA 10 MG IVPB GIVEN AND ATIVAN 1MG X2 GIVEN PER ORDER OF DR PETTIT.
[2020-01-13] MEDS ORDERED: LORazepam 2 MG/ML VIAL ONE (05:12)
[2020-01-13] MEDS ORDERED: LORazepam 2 MG/ML VIAL IVP ONE ×2 (05:15)
--- NOTE | 2020-01-13 05:30 | NUR ---
SOUNDLY ASLLEP. SNORING. SR W/ OCC PVC'S NOTED.
[2020-01-13 07:16] LABS: BASOPHILS # (AUTO) 0.1 K/uL (0.0-0.2); BASOPHILS % (AUTO) 1.2 % (0.0-2.0); EOSINOPHILS # (AUTO) 0.2 K/uL (0.0-0.4); EOSINOPHILS % (AUTO) 3.2 % (0.0-4.0); HEMATOCRIT 42.2 % (36-54); HEMOGLOBIN 14.7 g/dL (14.0-18.0); LYMPHOCYTES # (AUTO) 2.6 K/uL (1.0-5.5); LYMPHOCYTES % (AUTO) 45.4 % (20.5-51.5); MEAN CORPUSCULAR HEMOGLOBIN 30 pg (27-31); MEAN CORPUSCULAR HGB CONC 35 % (32-36); MEAN CORPUSCULAR VOLUME 87 fL (79.0-98.0); MONOCYTES # (AUTO) 0.3 K/uL (0.0-1.0); NEUTROPHILS # (AUTO) 2.6 K/uL (1.8-7.7); NEUTROPHILS % (AUTO) 45.2 % (40.0-70.0); PLATELET COUNT (AUTO) 328 K/uL (130-430); RED BLOOD CELL COUNT(AUTO) 4.85 MIL/uL (4.2-6.2); RED CELL DISTRIBUTION WIDTH 13.9 % (9.0-15.0); WHITE BLOOD COUNT (AUTO) 5.7 K/uL (4.8-10.8)
[2020-01-13 07:23] LABS: CALCIUM 8.7 mg/dL (8.4-11.0); CREATININE 0.77 mg/dL (0.55-1.30); POTASSIUM 3.7 mmol/L (3.5-5.1)
[2020-01-13 07:34] LABS: TOTAL BILIRUBIN 0.2 mg/dL (0.0-1.0)
[2020-01-13] MEDS ORDERED: FOLIC ACID 1 MG, THIAMINE HCL 100 MG, MAGNESIUM SULFATE 1 GM, MVI 10 ML in NACL 0.9% 1,... IV SCH (08:15)
[2020-01-13] MEDS ORDERED: ALBUTEROL SULFATE 0.083% 2.5 MG/3 ML VIAL.NEB INH PRN (08:15)
[2020-01-13] MEDS ORDERED: ACETAMINOPHEN 325 MG TABLET PO PRN (08:15)
[2020-01-13] MEDS ORDERED: NALOXONE HCL 0.4 MG/ML AMP (NARCAN) IVP PRN (08:15)
[2020-01-13] MEDS ORDERED: ONDANSETRON HCL 4 MG/2 ML VIAL IVP PRN (08:15)
[2020-01-13] MEDS ORDERED: LORazepam 2 MG/ML VIAL IVP PRN (08:15)
--- NOTE | 2020-01-13 08:42 | NUR ---
Patient was informed that he will be admitted to ICU. Patient requested that I call Mary (a friend) to inform her. Per Patient this is the only person he is close with. Phone number is [phone]. Called Mary and provided information as patient requested.
[2020-01-13] MEDS: amLODIPine BESYLATE 10 MG TABLET PO SCH (09:00)
[2020-01-13] MEDS: LOSARTAN POTASSIUM 50 MG TABLET (COZAAR) PO SCH (09:00)
[2020-01-13 10:08] LABS: BILIRUBIN,URINE NEGATIVE (NEGATIVE); BLOOD, URINE NEGATIVE (NEGATIVE); CLARITY/URINE CLEAR (CLEAR); COLOR,URINE YELLOW (YELLOW); GLUCOSE,URINE NEGATIVE (NEGATIVE); KETONES,URINE NEGATIVE (NEGATIVE); LEUKOCYTE ESTERASE ,URINE NEGATIVE (NEGATIVE); NITRITE, URINE NEGATIVE (NEGATIVE); PH,URINE 5.5 (5.0-8.0); PROTEIN URINE 2+ (NEGATIVE); UROBILINOGEN,URINE 0.2 (0.2-1.0)
--- NOTE | 2020-01-13 10:11 | NUR ---
Medication reconciliation completed with information provided by pt. Any prior medication reconciliation on file was reviewed and corrected.
[2020-01-13] MEDS: chlordiazePOXIDE HCL 25 MG CAPSULE PO SCH ×3 (10:16→21:23)
[2020-01-13] MEDS: PHENYTOIN 100 MG CAPSULE PO SCH ×2 (10:16→21:23)
[2020-01-13] MEDS: METOPROLOL TARTRATE 25 MG TABLET PO SCH ×2 (10:16→21:23)
--- NOTE | 2020-01-13 10:18 | NUR ---
Patient will be admitted to care of Dr. Newsome. Admitted to ICU unit. Will go to room 5. Belongings list completed. Complete and up to date summary report printed. SBAR report to be given at bedside with opportunity for questions. IV 20g, patent and infusing well. Bedside report to be given
[2020-01-13 10:24] LABS: ALBUMIN 3.2 g/dL (3.4-4.8); CALCIUM 8.4 mg/dL (8.4-11.0); CREATININE 0.75 mg/dL (0.55-1.30); PHENYTOIN (DILANTIN) 0.5 ug/mL (10.0-20.0); POTASSIUM 3.6 mmol/L (3.5-5.1); TOTAL BILIRUBIN 0.4 mg/dL (0.0-1.0)
[2020-01-13 10:26] LABS: BARBITURATE, URINE NEGATIVE (NEG <=200); BENZODIAZEPINE, URINE POSITIVE (NEG <=150); CANNABINOID, URINE NEGATIVE (NEG <=50); COCAINE, URINE NEGATIVE (NEG <=150); METHAMPHETAMINES SCREEN,URINE NEGATIVE (NEG <=500); OPIATE, URINE NEGATIVE (NEG <=100); PHENCYCLIDINE SCREEN,URINE NEGATIVE (NEG <=25); UR TRICYCLIC ANTIDEPRESSANTS NEGATIVE (NEG <=300); URINE AMPHETAMINE NEGATIVE (NEG <=500); URINE METHADONE NEGATIVE (NEG <=200); URINE OXYCODONE SCREEN NEGATIVE (NEG <=100); URINE PROPOXYPHENE SCREEN NEGATIVE (NEG <=300)
--- NOTE | 2020-01-13 10:30 | NUR ---
Patient arrived from ER with assistance from ER nurse and environmental monitoring specialist in [facility] with portable tele and 02 saturation monitor. Patient awake, alert, oriented x 4 time, place, name, situation, denies pain. In no acute distress, breathing even and unlabored on 2 liters nasal cannula. Received bedside report from ER nurse. Currently patient receiving 1 liter bolus via left AC 22 gauge. Placed ICU tele leads, blood pressure cuff, with continuos 02 saturation monitor.
--- NOTE | 2020-01-13 10:32 | NUR ---
Seizure precautions placed on side rails.
[2020-01-13 10:40] LABS: BASOPHILS % (AUTO) 0.8 % (0.0-2.0); EOSINOPHILS # (AUTO) 0.2 K/uL (0.0-0.4); EOSINOPHILS % (AUTO) 3.5 % (0.0-4.0); HEMATOCRIT 38.9 % (36-54); HEMOGLOBIN 13.4 g/dL (14.0-18.0); LYMPHOCYTES # (AUTO) 2.1 K/uL (1.0-5.5); LYMPHOCYTES % (AUTO) 42.6 % (20.5-51.5); MEAN CORPUSCULAR HEMOGLOBIN 30 pg (27-31); MEAN CORPUSCULAR HGB CONC 35 % (32-36); MEAN CORPUSCULAR VOLUME 86 fL (79.0-98.0); MONOCYTES # (AUTO) 0.3 K/uL (0.0-1.0); MONOCYTES % (AUTO) 6.9 % (1.7-9.3); NEUTROPHILS # (AUTO) 2.3 K/uL (1.8-7.7); NEUTROPHILS % (AUTO) 46.2 % (40.0-70.0); PLATELET COUNT (AUTO) 282 K/uL (130-430); RED CELL DISTRIBUTION WIDTH 13.7 % (9.0-15.0)
--- NOTE | 2020-01-13 11:00 | NUR ---
Dr. Castro is aware of consult,he is now in icu at patients bedside
--- NOTE | 2020-01-13 11:20 | NUR ---
MD Castro at bedside assessing patient.
[2020-01-13] MEDS: FOLIC ACID 1 MG, MVI 10 ML in NACL 0.9% 1,000 ML IV SCH (11:44)
[2020-01-13] MEDS: THIAMINE HCL 100 MG, MAGNESIUM SULFATE 1 GM in NS 100 ML IV SCH (11:45)
[2020-01-13] MEDS: LORazepam 2 MG/ML VIAL IVP PRN ×2 (11:51→17:18)
[2020-01-13] MEDS: MORPHINE 2 MG/ML INJ. SYRINGE IVP PRN ×2 (11:59→17:43)
[2020-01-13 12:25] LABS: BACTERIA,URINE None Seen /HPF (None Seen); RBC,URINE 0-3 /HPF (0-3); WBC,URINE 0-3 /HPF (0-3)
[2020-01-13 12:26] LABS: HYALINE CASTS, URINE 0-10 /LPF (None Seen)
--- NOTE | 2020-01-13 13:03 | NUR ---
MD Pak at bedside assessing patient.
--- NOTE | 2020-01-13 17:30 | NUR ---
Attempted to place second IV line insertion x 2 with no success. Requested charge nurse and second staff nurse to attempt x2 each with no success. After the unsuccessful attempts patient refused second IV line insertion despite receiving education of pros and cons x 3, patient gave verbal feedback of understanding, charge nurse aware.
[2020-01-13] MEDS: levETIRAcetam 1,000 MG in NS 100 ML IV SCH (17:43)
--- NOTE | 2020-01-13 18:02 | NUR ---
Offered CHG bath and oral care, patient requested later on in evening, will endorse to NOC shift nurse.
--- NOTE | 2020-01-13 19:25 | NUR ---
Endorsed patient and gave report to [facility] shift nurse. Patient sleeping in bed with side rails x 3 up with seizure precautions. In no acute distress, breathing even and unlabored. Call light with in reach.
--- NOTE | 2020-01-13 19:30 | NUR ---
Report received from day shift nurse. Pt is sleeping comfortably in bed and easily arousable. No seizure activity noted. IV Thiamine is infusing well in LAC without any signs of infiltration. panel monitor is showing SR. Fall, seizure and safety precautions are in place.
--- NOTE | 2020-01-13 21:23 | NUR ---
Scheduled medications given. No difficulty swallowing noted. Banana bag IVF is infusing well in [facility]. Fall, seizure and safety precautions are in place.
--- NOTE | 2020-01-13 23:00 | NUR ---
No acute distress noted. Banan bag IVF is infusing well in [facility].
[2020-01-14] VITALS (15 sets, daily range): BP systolic 111–148
--- NOTE | 2020-01-14 00:40 | NUR ---
Ativan 1mg given IV by charge nurse Monty for seizure activity.
[2020-01-14] MEDS: MORPHINE 2 MG/ML INJ. SYRINGE IVP PRN ×3 (01:14→21:02)
--- NOTE | 2020-01-14 01:14 | NUR ---
Pt c/o 08/14 headache. Morphine 2mg given IV. Pt instructed not to get out of bed without calling for assistance and pt verbalized understanding. Call light is with pt and bed is in the lowest/locked positions.
--- NOTE | 2020-01-14 03:15 | NUR ---
Pt is sleeping without any respiratory distress noted. Fall, seizure and safety precautions are in place.
[2020-01-14] MEDS: LORazepam 2 MG/ML VIAL IVP PRN ×2 (05:47→18:21)
--- NOTE | 2020-01-14 05:47 | NUR ---
Pt c/o anxiety and stated, "I'm having withdrawals." Tremors noted on pt's upper extremities. Ativan 1mg given IVP. IV site in LAC is without any signs of infiltration. Fall, seizure and safety precautions are in place.
[2020-01-14] MEDS: levETIRAcetam 1,000 MG in NS 100 ML IV SCH ×2 (05:52→18:02)
[2020-01-14 06:27] LABS: BASOPHILS % (AUTO) 0.7 % (0.0-2.0); EOSINOPHILS # (AUTO) 0.3 K/uL (0.0-0.4); HEMATOCRIT 38.9 % (36-54); HEMOGLOBIN 13.3 g/dL (14.0-18.0); LYMPHOCYTES # (AUTO) 2.3 K/uL (1.0-5.5); LYMPHOCYTES % (AUTO) 42.3 % (20.5-51.5); MEAN CORPUSCULAR HEMOGLOBIN 30 pg (27-31); MEAN CORPUSCULAR HGB CONC 34 % (32-36); MEAN CORPUSCULAR VOLUME 87 fL (79.0-98.0); MONOCYTES # (AUTO) 0.4 K/uL (0.0-1.0); MONOCYTES % (AUTO) 6.6 % (1.7-9.3); NEUTROPHILS # (AUTO) 2.4 K/uL (1.8-7.7); NEUTROPHILS % (AUTO) 45.4 % (40.0-70.0); PLATELET COUNT (AUTO) 258 K/uL (130-430); RED BLOOD CELL COUNT(AUTO) 4.48 MIL/uL (4.2-6.2); RED CELL DISTRIBUTION WIDTH 13.7 % (9.0-15.0); WHITE BLOOD COUNT (AUTO) 5.3 K/uL (4.8-10.8)
[2020-01-14 06:58] LABS: ALBUMIN 3.2 g/dL (3.4-4.8); CALCIUM 8.4 mg/dL (8.4-11.0); CREATININE 0.72 mg/dL (0.55-1.30); POTASSIUM 3.7 mmol/L (3.5-5.1); TOTAL BILIRUBIN 0.6 mg/dL (0.0-1.0)
--- NOTE | 2020-01-14 06:59 | NUR ---
Pt is sleeping without any respiratory distress noted. Side rails remains padded and no seizure activity noted. Will endorse to day shift nurse.
--- NOTE | 2020-01-14 07:17 | NUR ---
Nutrition Update Carlos Scale 18 noted. Pt admitted for Seizure Diet: Regular BMI: 31.9 kg/m2 RD to follow per nutrition care standards.
--- NOTE | 2020-01-14 07:20 | NUR ---
Report given to day shift nurse.
--- NOTE | 2020-01-14 07:20 | NUR ---
Received report to assume care of patient. Pt sleeping and easily arousable. C/O headache but fell asleep during further questioning. VSS. 02 sats 97 % on room air oxygen. SR on monitor. IV infusing to left arm at KVO rate. Pt able to use the urinal to void. Call blake in reach. 3 side rails up.
[2020-01-14] MEDS: PHENYTOIN 100 MG CAPSULE PO SCH ×2 (08:31→20:50)
[2020-01-14] MEDS: chlordiazePOXIDE HCL 25 MG CAPSULE PO SCH ×3 (08:31→20:50)
[2020-01-14] MEDS: LOSARTAN POTASSIUM 50 MG TABLET (COZAAR) PO SCH (08:32)
[2020-01-14] MEDS: amLODIPine BESYLATE 10 MG TABLET PO SCH (08:33)
[2020-01-14] MEDS: METOPROLOL TARTRATE 25 MG TABLET PO SCH ×2 (08:33→20:50)
--- NOTE | 2020-01-14 09:30 | NUR ---
No seizure activity noted. Pt sleeps and is easily arousable.
[2020-01-14] MEDS: FOLIC ACID 1 MG, MVI 10 ML in NACL 0.9% 1,000 ML IV SCH (10:37)
[2020-01-14] MEDS: THIAMINE HCL 100 MG, MAGNESIUM SULFATE 1 GM in NS 100 ML IV SCH (10:43)
--- NOTE | 2020-01-14 11:37 | NUR ---
Pt transfered to room 111A with belongings. Report given to Mayte MURPHY at bedside. Banana bag infusing at 100 cc/hr via left AC IV site.
--- NOTE | 2020-01-14 11:38 | NUR ---
ICU TRANSFER: RECEIVED REPORT FROM [facility] ICU CHARGE NURSE. PATIENT IN THE BED,WITH BILATERAL PADDED SIDE RAILS FOR SEIZURE PRECAUTION. BANANA BAG ON GOING AT LEFT AC INTACT. CALL LIGHT WITH IN REACH. BED LOCKED AT LOWEST POSITION. NO ACUTE DISTRESS. PERSONAL BELONGINGS CHECK AND UPDATED.
--- NOTE | 2020-01-14 12:01 | NUR ---
MORPHINE IV: C/O HEADACHE,DUE IV PAIN MEDS GIVEN PER REQUEST. NO PROBLEM.
--- NOTE | 2020-01-14 13:18 | NUR ---
SS NOTES: SHOP STEWARD received a referral to see patient for homelessness. SHOP STEWARD met with patient at bedside. Patient was asleep but awaken to answer some questions. Pt stated he is no longer homeless and is staying at a friends' house temporarily until he gets his own apartment. Pt stated he has ETOH and last drink was 2 days ago and denies use of illegal drugs. Pt stated he was admitted at detox facility in the past but started drinking again after the recent of his mother. Patient stated he is "not ready" to stop drinking, and recognizes the risks. Patient denies any history of mental health. SHOP STEWARD provided patient with POL[facility], outpatient mental health and substance abuse/use resources.
--- NOTE | 2020-01-14 16:20 | NUR ---
RN ROUNDS: RESTING. NO SEIZURES NOTED THIS TIME.
--- NOTE | 2020-01-14 18:21 | NUR ---
IV ATIVAN: DUE IV ATIVAN 1MG IVP GIVEN PER PATIENT'S REQUEST FOR ANXIETY. NO PROBLEM.
--- NOTE | 2020-01-14 18:46 | NUR ---
END OF SHIFT: PATIENT RESTING THIS TIME. NEEDS ATTENDED TO. CALL LIGHT WITH IN REACH. BED LOCKED AT LOWEST POSITION. SEIZURE PRECAUTION RENDERED.
--- NOTE | 2020-01-14 19:20 | NUR ---
OPENING NOTES RECEIVED PATIENT IN BED ASLEEP AROUSABLE TO NAME. BREATHING UNLABORED ON ROOM AIR. REFUSING TO USE 02 CANNULA AT THIS TIME. 02 SAT 96% ON ROOM AIR. BED IN LOWEST LOCKED POSITION. SEIZURE PRECAUTIONS IN PLACED. CALL LIGHT WITH IN REACH.
--- NOTE | 2020-01-14 21:02 | NUR ---
PAIN MGT PATIENT MEDICATED WITH MORPHINE FOR C/O HEADACHE 08/14. VITAL SIGNS STABLE.
[2020-01-15 00:50] VITALS: BP_SYST 140
[2020-01-15] MEDS: LORazepam 2 MG/ML VIAL IVP PRN ×3 (00:53→20:07)
--- NOTE | 2020-01-15 00:53 | NUR ---
ANXIETY/TREMORS PATIENT MEDICATED WITH ATIVAN REQUESTED FOR C/O ANXIETY AND VISIBLE BILATERAL ARMS TREMORS. VITAL SIGNS STABLE. MIDNIGHT SNACK PROVIDED.
--- NOTE | 2020-01-15 03:06 | NUR ---
ROUNDS PATIENT RESTING IN BED. BREATHING UNLABORED ON ROOM AIR.
[2020-01-15] MEDS: MORPHINE 2 MG/ML INJ. SYRINGE IVP PRN ×2 (06:12→12:32)
[2020-01-15] MEDS: levETIRAcetam 1,000 MG in NS 100 ML IV SCH ×2 (06:13→18:36)
--- NOTE | 2020-01-15 06:31 | NUR ---
CLOSING NOTES PATIENT NEEDS ATTENDED. KEPPRA IV INFUSING. MEDICATED WITH MORPHINE FOR C/O HEADACHE. VITAL SIGNS STABLE. BED IN LOWEST LOCKED POSITION WITH ALARM ON. SEIZURE PRECAUTIONS IN PLACED. CALL LIGHT WITH IN REACH.
[2020-01-15 08:00] VITALS: BP_SYST 148
[2020-01-15] MEDS: amLODIPine BESYLATE 10 MG TABLET PO SCH (09:21)
[2020-01-15] MEDS: chlordiazePOXIDE HCL 25 MG CAPSULE PO SCH ×3 (09:21→20:06)
[2020-01-15] MEDS: LOSARTAN POTASSIUM 50 MG TABLET (COZAAR) PO SCH (09:21)
[2020-01-15] MEDS: METOPROLOL TARTRATE 25 MG TABLET PO SCH ×2 (09:22→20:06)
[2020-01-15] MEDS: PHENYTOIN 100 MG CAPSULE PO SCH ×2 (09:22→20:05)
[2020-01-15 11:43] VITALS: BP_SYST 135
[2020-01-15] MEDS: THIAMINE HCL 100 MG, MAGNESIUM SULFATE 1 GM in NS 100 ML IV SCH (12:17)
[2020-01-15] MEDS: FOLIC ACID 1 MG, MVI 10 ML in NACL 0.9% 1,000 ML IV SCH (12:18)
[2020-01-15 15:36] VITALS: BP_SYST 143
--- NOTE | 2020-01-15 19:20 | NUR ---
NO SZ activity noted or reported during shift. Pt only requested Ativan once during shift for anxiety and tremors. Pt's THIBODEAUX treated with Morphine per MD PRN order (See eMAR). No adverse events during shift. Pt safety maintained during shift.
[2020-01-15 20:01] VITALS: BP_SYST 130
--- NOTE | 2020-01-15 20:07 | NUR ---
MED PASS PATIENT DUE MEDICATIONS GIVEN. MEDICATED WITH ATIVAN FOR C/O ANXIETY AND TREMORS. VITAL SIGNS STABLE. BED IN LOWEST LOCKED POSITION WITH ALARM ON. CALL LIGHT WITH IN REACH. SEIZURE PRECAUTIONS IN PLACED.
[2020-01-15 23:55] VITALS: BP_SYST 124
[2020-01-16] MEDS: MORPHINE 2 MG/ML INJ. SYRINGE IVP PRN ×5 (00:02→23:04)
--- NOTE | 2020-01-16 00:02 | NUR ---
PAIN M GT PATIENT MEDICATED WITH MORPHINE FOR C/O HEADACHE 08/14. VITAL SIGNS STABLE. MIDNIGHT SNACK PROVIDED PER PATIENT REQUEST.
--- NOTE | 2020-01-16 03:30 | NUR ---
ROUNDS PATIENT RESTING IN BED. BREATHING UNLABORED ON 02 2L NC. CALL LIGHT WITH IN REACH.
[2020-01-16] MEDS: levETIRAcetam 1,000 MG in NS 100 ML IV SCH ×2 (05:23→18:00)
--- NOTE | 2020-01-16 05:32 | NUR ---
PAIN MGT PATIENT MEDICATED WITH MORPHINE FOR C/O HEADACHE. KEPPRA INFUSING PER PATIENT KEPPRA GIVES HIM A BAD HEADACHE. VITAL SIGNS STABLE.
--- NOTE | 2020-01-16 06:41 | NUR ---
CLOSING NOTES PATIENT NEEDS ATTENDED. NO SEIZURE ACTIVITY THE ENTIRE SHIFT. BED IN LOWEST LOCKED POSITION WITH ALARM ON. SEIZURE PRECAUTIONS IN PLACED. PATIENT REFUSED LINENS TO BE CHANGE THIS MORNING.
[2020-01-16 08:00] VITALS: BP_SYST 140
[2020-01-16] MEDS: METOPROLOL TARTRATE 25 MG TABLET PO SCH ×2 (10:05→21:20)
[2020-01-16] MEDS: LOSARTAN POTASSIUM 50 MG TABLET (COZAAR) PO SCH (10:05)
[2020-01-16] MEDS: chlordiazePOXIDE HCL 25 MG CAPSULE PO SCH ×3 (10:05→21:19)
[2020-01-16] MEDS: PHENYTOIN 100 MG CAPSULE PO SCH ×2 (10:05→21:20)
[2020-01-16] MEDS: amLODIPine BESYLATE 10 MG TABLET PO SCH (10:06)
[2020-01-16] MEDS: LORazepam 2 MG/ML VIAL IVP PRN ×3 (10:06→21:29)
[2020-01-16 12:00] VITALS: BP_SYST 136
--- NOTE | 2020-01-16 12:42 | NUR ---
NORMAL SALINE STARTED AT 01/13/2020 AT 1015 ENDED AT 1115 KEPPRA STARTED AT 01/13/2020 AT 0517 ENDED AT 0617 NS STARTED AT 0515 ON 01/13/2020 ENDED AT 0615
[2020-01-16 14:11] VITALS: BP_SYST 136
[2020-01-16] MEDS: FOLIC ACID 1 MG, MVI 10 ML in NACL 0.9% 1,000 ML IV SCH (15:00)
[2020-01-16] MEDS: THIAMINE HCL 100 MG, MAGNESIUM SULFATE 1 GM in NS 100 ML IV SCH (15:01)
[2020-01-16 16:00] VITALS: BP_SYST 138
--- NOTE | 2020-01-16 16:12 | NUR ---
Pt c/o DT's and anxiety. Will administer Ativan per MD PRN order. Pt also c/o indigestion/heartburn and requested TUMS. Notified Dr. Newsome re: the same. Order received. Will carry out. See eMAR.
[2020-01-16] MEDS: CALCIUM CARBONATE 500 MG/ TAB.CHEW PO PRN (16:39)
--- NOTE | 2020-01-16 19:02 | NUR ---
Medicated pt for THIBODEAUX of level 6/10 with Morphine 2 mg IVP per MD PRN order. Medication effective. NO Seizure activity noted or reported during shift. NO adverse events during shift. Pt merely wants to know when he will be discharged home as he has to move out of current home by 01/20/2020 and needs to take care care of multiple pets. Will endorse discharge inquiry from pt to medical director occupational health RN. Pt safety maintained during shift.
--- NOTE | 2020-01-16 19:35 | NUR ---
ROUNDS PATIENT IN BED, WATCHING TV, VITALS STABLE, NO PAIN AT THIS TIME. ASSESSMENT DONE AND DOCUEMNTED. SEE FLOWSHEET. NEEDS ATTENDED TO. SAFETY MEASURES IN PLACED. CALL LIGHT PLACED WITHIN REACH.
--- NOTE | 2020-01-16 21:13 | NUR ---
MEDICATIONS DUE MEDICATIONS GIVEN SCHEDULED, TOLERATED WELL. WILL CONTINUE TO MONITOR.
--- NOTE | 2020-01-17 00:14 | NUR ---
PATIENT RESTING: Patient resting quietly. No acute distress noted. Vital signs within normal range.
[2020-01-17 00:42] VITALS: BP_SYST 144
--- NOTE | 2020-01-17 02:13 | NUR ---
ROUNDS PATIENT ASLEEP, RESPIRATIONS EVEN AND UNLABORED, WILL CONTINUE TO MONITOR.
--- NOTE | 2020-01-17 04:13 | NUR ---
ROUNDS PATIENT SLEEPING, RESPIRATIONS EVEN AND UNLABORED, WILL CONTINUE TO MONITOR.
[2020-01-17] MEDS: MORPHINE 2 MG/ML INJ. SYRINGE IVP PRN ×3 (05:00→22:58)
[2020-01-17] MEDS: levETIRAcetam 1,000 MG in NS 100 ML IV SCH (05:06)
[2020-01-17 08:00] VITALS: BP_SYST 120
--- NOTE | 2020-01-17 08:00 | NUR ---
initial notes rec patient awake laert with hob elevated. ivf infusing well on the l ac. no infiltration noted. resp easy and unlabored. no sob noted. bed to the lowest position and side rail up and locked. call light within reached. no oseizure noted at this time. call light withn reached.
[2020-01-17] MEDS: chlordiazePOXIDE HCL 25 MG CAPSULE PO SCH ×3 (10:21→21:53)
[2020-01-17] MEDS: amLODIPine BESYLATE 10 MG TABLET PO SCH (10:21)
[2020-01-17] MEDS: LOSARTAN POTASSIUM 50 MG TABLET (COZAAR) PO SCH (10:22)
[2020-01-17] MEDS: METOPROLOL TARTRATE 25 MG TABLET PO SCH ×2 (10:22→21:53)
[2020-01-17] MEDS: THIAMINE HCL 100 MG, MAGNESIUM SULFATE 1 GM in NS 100 ML IV SCH (10:23)
[2020-01-17] MEDS: FOLIC ACID 1 MG, MVI 10 ML in NACL 0.9% 1,000 ML IV SCH (10:23)
[2020-01-17] MEDS: PHENYTOIN 100 MG CAPSULE PO SCH ×2 (10:23→21:52)
--- NOTE | 2020-01-17 10:30 | NUR ---
rounds due meds given and mandi well. seen by dr grant. call light within reached. voiding using the urinal at bedside.
[2020-01-17] MEDS: LORazepam 2 MG/ML VIAL IVP PRN ×2 (10:41→21:56)
--- NOTE | 2020-01-17 12:00 | NUR ---
rounds resting comfortably. call light within reached.
[2020-01-17 12:17] VITALS: BP_SYST 115
--- NOTE | 2020-01-17 14:00 | NUR ---
rounds sleeps at intervals. call light within reached.
--- NOTE | 2020-01-17 16:00 | NUR ---
rounds resting quietly , denies pain. call light withn reached. no seizure noted.
[2020-01-17 16:18] VITALS: BP_SYST 137
--- NOTE | 2020-01-17 18:30 | NUR ---
closing notes eating dinner. denies pain. no seizure episode noted. call light within reached. bed to the lowest position and side rails up and locked.
--- NOTE | 2020-01-17 19:32 | NUR ---
OPENING NOTE: RECEIVED SBAR REPORT FROM DAY SHIFT RN. PATIENT IS RESTING COMFORTABLY IN BED. BREATHING UNLABORED AND EVEN ON RA. PER PATIENT HE USES OXYGEN WHEN EXPERIENCING SOB OR DURING SEIZURE. IV AT L AC NOTED. INFUSING FLUID AT THE MOMENT WITH NO SIGN OF INFILTRATION. PATIENT IS USING URINAL. SAFETY,FALL, AND SEIZURE PRECAUTIONS ARE IN PLACE. CALL LIGHT IS WITH PATIENT.
[2020-01-17 20:00] VITALS: BP_SYST 143
[2020-01-17] MEDS: levETIRAcetam 500 MG TABLET PO SCH (21:52)
--- NOTE | 2020-01-17 21:53 | NUR ---
MEDICATION PASS: PATIENT GIVEN SCHEDULED MEDS. PATIENT TOLERATED WELL. NO S/S ACUTE DISTRESS NOTED. SAFETY,FALL, AND SEIZURE PRECAUTIONS ARE IN PLACE. CALL LIGHT IS WITH PATIENT. WILL CONTINUE TO MONITOR.
[2020-01-17] MEDS: CALCIUM CARBONATE 500 MG/ TAB.CHEW PO PRN (22:56)
--- NOTE | 2020-01-17 22:58 | NUR ---
MORPHINE: PATIENT REPORTS HEADACHE, RATING 6 ON THE SCALE 0-10. WILL RE-ASSESS THE PAIN.
[2020-01-18] VITALS: BP_SYST 138
--- NOTE | 2020-01-18 00:53 | NUR ---
HEADACHE/TYLENOL: PATIENT REPORTS HEADACHE. TYLENOL GIVEN TO PATIENT FOR PAIN. PATIENT TOLERATED WELL. WILL RE-ASSESS THE PAIN.
[2020-01-18] MEDS: LORazepam 2 MG/ML VIAL IVP PRN (01:51)
--- NOTE | 2020-01-18 01:51 | NUR ---
AGITATION/ANXIETY: PATIENT REPORTS BEING AGITATED AND ANXIOUS. ATIVAN 0.5 ML ADMINISTERED. NO S/S ACUTE DISTRESS NOTED. FALL AND SEIZURE PRECAUTIONS ARE IN PLACE. CALL LIGHT IS WITH PATIENT. WILL CONTINUE TO MONITOR.
--- NOTE | 2020-01-18 03:02 | NUR ---
RN ROUNDS: PATIENT ASLEEP. BREATHING IS EVEN AND UNLABORED ON 2 L OF OXYGEN VIA NC. NO S/S ACUTE DISTRESS NOTED. SAFETY AND SEIZURE PRECAUTIONS ARE IN PLACE. CALL LIGHT IS WITH PATIENT. WILL CONTINUE TO MONITOR.
--- NOTE | 2020-01-18 04:54 | NUR ---
RN ROUNDS: PATIENT IS IN BED, CURRENTLY SLEEPING. BREATHING IS EVEN AND UNLABORED ON 2 L OF OXYGEN VIA NC. NO S/S ACUTE DISTRESS NOTED. SAFETY,FALL, AND SEIZURE PRECAUTIONS ARE IN PLACE. CALL LIGHT IS WITH PATIENT. WILL CONTINUE TO MONITOR.
[2020-01-18] MEDS: MORPHINE 2 MG/ML INJ. SYRINGE IVP PRN ×2 (05:43→12:16)
--- NOTE | 2020-01-18 06:06 | NUR ---
CLOSING NOTE: PATIENT REPORTS HEADACHE, RATING HIS PAIN 9 ON THE SCALE OF 0-10. MORPHINE 1 ML ADMINISTERED. PATIENT TOLERATED WELL. RESPIRATION IS EVEN AND UNLABORED. RECEIVING 2 L OF OXYGEN VIA NC. NO S/S ACUTE DISTRESS NOTED. IV IS SALINE LOCK ON L AC. PATENT AND DRESSING IS DRY AND INTACT. BED IS IN LOWEST POSITION, LOCKED, AND ALARM IS ON. FALL AND SEIZURE PRECAUTIONS ARE MAINTAINED. CALL LIGHT IS WITH PATIENT. ALL NEEDS MET. WILL ENDORSE PATIENT'S PLAN OF CARE TO DAY SHIFT RN.
[2020-01-18 08:00] VITALS: BP_SYST 150
--- NOTE | 2020-01-18 08:00 | NUR ---
initial notes rec patient awake alert with ivl on the l ac intact. no infiltration noted. denies pain or any seizure activity noted. resp easy and unlabored. no osb noted. bed to the lowest position and side rails up and locked. call light within reached.
[2020-01-18] MEDS ORDERED: THIAMINE HCL 100 MG TABLET PO SCH (09:00)
[2020-01-18] MEDS: levETIRAcetam 500 MG TABLET PO SCH (09:57)
[2020-01-18] MEDS: LOSARTAN POTASSIUM 50 MG TABLET (COZAAR) PO SCH (09:58)
[2020-01-18] MEDS: amLODIPine BESYLATE 10 MG TABLET PO SCH (09:58)
[2020-01-18] MEDS: METOPROLOL TARTRATE 25 MG TABLET PO SCH (09:58)
[2020-01-18] MEDS: chlordiazePOXIDE HCL 25 MG CAPSULE PO SCH (09:59)
[2020-01-18] MEDS: PHENYTOIN 100 MG CAPSULE PO SCH (09:59)
--- NOTE | 2020-01-18 10:30 | NUR ---
rounds due meds were given and mandi well. seen by dr grant and with order to go home. uses the urinal at bedside. no sob noted.
--- NOTE | 2020-01-18 12:00 | NUR ---
rounds no seizure activity noted. call light within reached. watching tv at intervals.
[2020-01-18 12:16] VITALS: BP_SYST 148
[2020-01-18 12:38] VITALS: BP_SYST 148
--- NOTE | 2020-01-18 13:58 | NUR ---
closing notes was escorted outside and went home. was picked up by his friend. ivl and id band was removed. medication reconciliation was discussed with patient. reminded patient too re appt with pmd dr david. stable, needs attended.
== END 2020-01-18 13:50 | disposition home or self-care (01) | DRG 101 ==
LOC: SED 03:56 → SIC 06:30 → STU 06:35 → SIC 10:37 → STU 01-14 11:18 → SMU 01-16 10:48
PROVIDERS: ADMIT Internal Medicine Hospice and Palliative Medicine; ATTEND Internal Medicine Hospice and Palliative Medicine
DX: G40.901 Epilepsy, unspecified, not intractable, with status epilepticus (principal); E87.1 Hypo-osmolality and hyponatremia; F10.231 Alcohol dependence with withdrawal delirium; E87.2 Acidosis; I10 Essential (primary) hypertension; F10.229 Alcohol dependence with intoxication, unspecified; F32.9 Major depressive disorder, single episode, unspecified; Y90.9 Presence of alcohol in blood, level not specified; Z20.828 Contact with and (suspected) exposure to other viral communicable diseases; Z91.14 Patient's other noncompliance with medication regimen; Z88.0 Allergy status to penicillin; Z91.018 Allergy to other foods; Z79.899 Other long term (current) drug therapy; Z91.19 Patient's noncompliance with other medical treatment and regimen
CPT/HCPCS: 36415; 70450-TC; 76376; 80053; 80185-TC; 80307; 81000-TC; 83735-TC; 84100-TC; 85025; 87081; 99285; G0378; G0482; J1953; J2060; J2270; J3411; J3475; J3490; J7030; J7050